=== PATIENT | female | born 1990 | race Caucasian/White ===

== ENCOUNTER 2019-05-14 18:06 | Emergency (ER) | payer OTHER ==
[~2019-05-14] VITALS: Ht 152.4 cm; Wt 58.1 kg
[2019-05-14] MEDS ORDERED: PREN1CHW4 PO (18:16)
[2019-05-14 19:20] LABS: BASO # 0.1 10^3/uL (0.0-0.2); BASO % 0.5 % (0.0-1.0); EOS # 0.2 10^3/uL (0.0-0.5); EOS % 1.7 % (0.0-3.0); HEMATOCRIT 42.6 % (36.0-47.0); HEMOGLOBIN 14.4 g/dl (12.0-15.5); LYMPH # 2.5 10^3/uL (1.5-5.0); LYMPH % 27.6 % (24.0-44.0); MEAN CORPUSCULAR HEMOGLOBIN 29.3 pg (27.0-33.0); MEAN CORPUSCULAR HGB CONC 33.8 g/dl (32.0-36.5); MEAN CORPUSCULAR VOLUME 86.6 fl (80.0-96.0); MONO # 0.7 10^3/uL (0.0-0.8); MONO % 7.2 % (0.0-5.0); NEUTROPHILS # 5.8 10^3/uL (1.5-8.5); NEUTROPHILS % 62.8 % (36.0-66.0); PLATELET COUNT, AUTOMATED 276 10^3/uL (150-450); RED BLOOD COUNT 4.92 10^6/uL (4.00-5.40); WHITE BLOOD COUNT 9.2 10^3/uL (4.0-10.0)
[2019-05-14 19:42] LABS: BLOOD UREA NITROGEN 13 MG/DL (7-18); CALCIUM LEVEL 8.6 MG/DL (8.5-10.1); CARBON DIOXIDE LEVEL 29 MEQ/L (21-32); CHLORIDE LEVEL 105 MEQ/L (98-107); CREATININE FOR GFR 0.71 MG/DL (0.55-1.30); GLOMERULAR FILTRATION RATE > 60.0 (>60); GLUCOSE, FASTING 78 MG/DL (70-100); POTASSIUM SERUM 4.3 MEQ/L (3.5-5.1); SODIUM LEVEL 141 MEQ/L (136-145)
[2019-05-14 22:21] LABS: HCG, SERUM QUANTITATIVE 2164 MIU/ML
--- NOTE | 2019-05-15 00:32 | REPVR ---
PROCEDURE INFORMATION: Exam: US First Trimester, Transabdominal Exam date and time: 05/14/2019 11:20 PM Clinical history: 28 years old, female; Lmp or gestational age (in weeks): 6w2d; Antepartum complications; Bleeding; ; Additional info: Vaginal bleeding TECHNIQUE: Imaging protocol: Real-time transabdominal obstetrical ultrasound of the maternal pelvis and a first trimester , less than 14 weeks 0 days, with image documentation. COMPARISON: No relevant prior studies available. FINDINGS: GESTATION: Gestation: Single live intrauterine . Gestational sac is measuring 1.0 cm corresponding to 5 weeks 1 day, small for size; one week behind.Gestational sac is seen moving with contraction as in the fundus of the uterus, impending cannot be completely excluded, followup is recommended. pole is identified. [place]-rump length measures 0.6 cm corresponding with 6 weeks 2 days with LASHAE of 01/05/20, concordant with LMP. Heart rate: heart rate is 104 beats per minute. Placenta: No subchorionic hemorrhage is seen. MATERNAL: Bilateral adnexa are unremarkable. No free fluid. IMPRESSION: Single live intrauterine . Gestational sac is measuring 1.0 cm corresponding to 5 weeks 1 day, small for size; one week behind.Gestational sac is seen moving with contraction as in the fundus of the uterus, impending cannot be completely excluded, followup is recommended. pole is identified. [place]-rump length measures 0.6 cm corresponding with 6 weeks 2 days with LASHAE of 01/05/20, concordant with LMP. Electronically signed by: Soheila Daily On 05/15/2019 00:31:42 AM
[2019-05-15 00:52] VITALS: BP 109/55
== END 2019-05-15 01:03 | disposition home or self-care (01) ==
LOC: M ED 18:06
DX: O20.0 Threatened abortion (principal); O26.891 Other specified pregnancy related conditions, first trimester; R10.2 Pelvic and perineal pain; Z87.42 Personal history of other diseases of the female genital tract; Z3A.01 Less than 8 weeks gestation of pregnancy

== ENCOUNTER 2019-05-16 10:57 | Emergency (ER) | payer OTHER ==
[~2019-05-16] VITALS: Ht 152.4 cm; Wt 57.8 kg
[2019-05-16 12:30] VITALS: BP 116/80
--- NOTE | 2019-05-16 12:33 | REP ---
FIRST TRIMESTER ULTRASOUND: Real-time sonographic evaluation of the gravid uterus performed utilizing transabdominal and endovaginal technique and compared to a prior study of 05/14/2019. The uterus measures 9.2 x 4.0 x 6.0 cm. 6 mm pole is seen. An irregular gestational sac, which appears to be collapsing in the lower uterine segment. No heart motion is detected. Estimated age based on crown-rump length of 6 mm is 6 weeks, 3 days. Right ovary measures 2.8 x 1.4 x 3.1 cm and appears unremarkable. Left ovary is not visualized. IMPRESSION: There are findings compatible with intrauterine demise and impending . A 6 mm pole is seen within a collapsed gestational sac in the lower uterine segment. No heart motion is detected. heart motion was detected on the prior study of 05/14/2019. Estimated gestational age based on crown-rump length of 6 mm is 6 weeks 3 days. Electronically Signed by William Connell MD 05/16/2019 03:20 P
== END 2019-05-16 13:05 | disposition home or self-care (01) ==
LOC: M ED 10:57
DX: O03.9 Complete or unspecified spontaneous abortion without complication (principal); Z79.899 Other long term (current) drug therapy

== ENCOUNTER → 2019-05-16 | Outpatient (CLI) | payer OTHER ==
[~2019-05-16] MED LIST: PREN1CHW4 PO
== END ==
LOC: M LAB 10:40
PROVIDERS: ATTEND Physician Assistant
DX: O20.0 Threatened abortion (principal); Z3A.00 Weeks of gestation of pregnancy not specified

== ENCOUNTER → 2019-05-18 | Outpatient (CLI) | payer OTHER | LOC: M LAB 12:18 | PROVIDERS: ATTEND Emergency Medicine | DX: O03.9 Complete or unspecified spontaneous abortion without complication (principal) ==

== ENCOUNTER → 2019-08-12 | Outpatient (CLI) | payer OTHER ==
--- NOTE | 2019-08-12 14:31 | REP ---
REASON: Pain after trauma. PRIORS: None. FINDINGS: The joint spaces are symmetric and relatively well maintained. There is no evidence of acute fracture or destructive osseous lesion. IMPRESSION: Negative hand. Electronically Signed by Jarrett Sarah DO 08/12/2019 03:25 P
== END ==
LOC: M WUC 13:26
PROVIDERS: ATTEND Physician Assistant
DX: M79.641 Pain in right hand (principal)

== ENCOUNTER 2020-04-26 22:17 | Inpatient (IN) | payer OTHER ==
[~2020-04-26] VITALS: Ht 152.4 cm; Wt 66.4 kg
[2020-04-26 22:39] VITALS: BP 109/71
[2020-04-26] MEDS: LR 1,000 ML IV SCH (23:40)
[2020-04-27 00:12] LABS: HEMATOCRIT 30.8 % (36.0-47.0); HEMOGLOBIN 10.1 g/dl (12.0-15.5); MEAN CORPUSCULAR HEMOGLOBIN 25.5 pg (27.0-33.0); MEAN CORPUSCULAR HGB CONC 32.8 g/dl (32.0-36.5); MEAN CORPUSCULAR VOLUME 77.8 fl (80.0-96.0); PLATELET COUNT, AUTOMATED 216 10^3/uL (150-450); RED BLOOD COUNT 3.96 10^6/uL (4.00-5.40); WHITE BLOOD COUNT 8.7 10^3/uL (4.0-10.0)
--- NOTE | 2020-04-27 01:30 | HPEPDOC ---
Obstetrical History & Physical General Date of Admission Apr 26, 2020 at 23:18 History of Present Illness 29yo daphne [id number] @38+5, presenting with c/o cramping and bleeding. States reassuring movement, denies LOF Chief Complaint: Contractions, term, Vaginal Bleeding Information Provided By: Patient Age: 29 : 4 Term: 1 Pre-term: 0 Abortions: 2 Livin Care Care: Good Care Dating Final EDC: May 05, 2020 Final EDC for Daily Update: May 05, 2020 Final EDC by: LMP LMP: Jul 30, 2019 Estimated Date of Confinement: May 05, 2020 EGA at Admission: 38 (+5) Antepartum Course Diagnos(e)s low lying placenta-resolved; choroid plexus cyst-resolved Height (inches): 60 Pre- weight (lbs.): 130 Admission Weight (lbs.): 145 Change in Weight (lbs.): 15 Past Medical History Past Obstetrical History : Past Obstetrical History: Multigravida Type of Delivery: Spontaneous Vaginal Del. Sex of Infant: Female Complications: No ROD FILLER History: Spontaneous Past Medical History Medical History denies Surgical History: Denies/None Family History Significant Family History: Asthma, Hypertension Social History Marital Status: Family situation: Spouse/partner home Psychosocial History: No pertinent psych hx * Smoker: non-smoker Alcohol: occationally Drugs: denies Abuse Violence Screening Have you been hit/kicked/slapp: No Have you been sexually assault: No Imunizations Tdap status: current Influenza Status: current Allergies Coded Allergies: No Known Allergies (Unverified , 05/14/19) Medications Miscellaneous Medications Pnv No.103/Folic/Om3s/Fish Oil ( Gummies) 1 Each Tab.chew, 1 CHW PO Physical Examination Physical Examination GENERAL: Alert and oriented times three. BREAST: . ABDOMEN: Gravid and non-tender to touch. FETUS: Is vertex (VTX) by sterile vaginal examination (SVE), fetus is vertex (VTX) by Jamil. HEART RATE: Regular rate and rhythm. LUNGS: Clear to auscultation (CTA). EXTREMITIES: No edema. No clonus. Deep tendon reflexes (DTRs) + . Vital Signs/I&O Vital Signs Date Time Temp Pulse Resp B/P (MAP) Pulse Ox O2 Delivery O2 Flow Rate FiO2 04/26/20 22:39 98.2 93 18 109/71 (84) Laboratory Data 24H LABS Laboratory Tests 2 04/26/20 23:25: Nucleated Red Blood Cells % (auto) 0.0 04/26/20 23:41: Serology Scanned Report Hepatitis B Testing CBC/BMP Laboratory Tests 04/26/20 23:25 Assessment/Plan Assessment is a -year-old (G) para (P)--- at + weeks by -week ultrasound. Presents to Labor and Delivery (L&D) . Plan Admit and orient. Starch Dumper and consent. Diet: . Group B Streptococcus (GBS) [negative]. Labs and intravenous (IV) per unit protocol. Counseled on Pitocin and induction of labor (IOL). Lactated Ringers (LR): Bolus mL, then at mL/hr. Anticipate [normal spontaneous delivery ()]. C-S as appropriate. LENY WEST CNM Apr 27, 2020 01:30
--- NOTE | 2020-04-27 01:39 | IPNPDOC ---
Obstetrical Progress Note Date of Service Apr 27, 2020 Objective Vital Signs Date Time Temp Pulse Resp B/P (MAP) Pulse Ox O2 Delivery O2 Flow Rate FiO2 04/26/20 22:39 98.2 93 18 109/71 (84) Assessment Heart Rate (FHR): 120 Variability: Moderate Accelerations: Positive Decelerations: None Heart Rate Tracing: Category I Tocometer Contractions: Yes (every 3-5 min) Strength: palpated as moderate Sterile Vaginal Examination Dilation: 5 cm Effacement (%): 80% Station: -2 Cervical Consistency: Soft Cervical Position: Middle Postion/Presentation: Cephalic presentation Assessment and Plan Age: 29 : 4 Term: 1 Pre-term: 0 Abortions: 2 Livin EGA at Admission: 38 (+6) Status: Reassuring Group B Streptococcus: Negative Anticipate: Vaginal Delivery Additional Comments Speculum exam with thick blood clots noted at the cervical os. No active bleeding or pooling visualized. LENY WEST CNM Apr 27, 2020 01:39
[2020-04-27 01:56] VITALS: BP 104/59
[2020-04-27 05:17] VITALS: BP 114/56
--- NOTE | 2020-04-27 05:41 | IPNPDOC ---
Obstetrical Progress Note Date of Service Apr 27, 2020 Subjective Pt states feeling less frequent contractions Objective Vital Signs Date Time Temp Pulse Resp B/P (MAP) Pulse Ox O2 Delivery O2 Flow Rate FiO2 04/26/20 22:39 98.2 93 18 109/71 (84) Assessment Heart Rate (FHR): 125 Variability: Moderate Accelerations: Positive Decelerations: None Heart Rate Tracing: Category I Tocometer Contractions: Yes Frequency: irregular Strength: palpated as moderate Sterile Vaginal Examination Dilation: 6 cm Effacement (%): 90% Station: -2 Cervical Consistency: Soft Cervical Position: Posterior Postion/Presentation: Cephalic presentation Assessment and Plan Age: 29 : 4 Term: 1 Pre-term: 0 Abortions: 2 Livin Weeks & Days 38+6 Status: Reassuring Group B Streptococcus: Negative Anticipate: Vaginal Delivery Additional Comments Membranes swept with exam. Posterior cervix with BBOW, presentation palpates OP. Pt assisted to rotate to an exaggerated right lateral Belle and frequent position changes encouraged. LR@125mL/hr, continuous efmx2, monitor for change in or maternal status, consider AROM with next exam, evaluate for change as indicated, anticipate vaginal delivery. LENY WEST CNM Apr 27, 2020 05:41
[2020-04-27] MEDS ORDERED: OXYTOCIN 30 UNITS IN 0.9% NaCl 500ML IV BAG (J2590) As Ordered ONE (06:08)
[2020-04-27] MEDS: LR 1,000 ML IV SCH (07:08)
[2020-04-27] MEDS ORDERED: FENTANYL 2MCG/ML ROPIVACAINE 0.2% IN 0.9% NACL 100ML IVBAG As Ordered ONE (07:42)
[2020-04-27] MEDS ORDERED: EPIDURAL/PCA KEYS XX PRN (08:45)
[2020-04-27] MEDS ORDERED: NALOXONE INJ 0.4MG/1ML VIAL (J2310 PER 1MG) IV PRN (08:45)
[2020-04-27] MEDS ORDERED: ePHEDrine SULFATE 25 MG/5 ML(5MG/ML) SYRINGE IV PRN (08:45)
[2020-04-27] MEDS ORDERED: LACTATED RINGER'S 1000 ML IV PRN (08:45)
[2020-04-27] MEDS ORDERED: ONDANSETRON 4MG/2ML VIAL IV PRN (08:45)
[2020-04-27] MEDS ORDERED: FENTANYL/ROPIVACAINE/NACL BAG 100 ML EPIDURAL SCH (08:45)
[2020-04-27] MEDS ORDERED: EPIDURAL COMMENT XX SCH (08:45)
[2020-04-27] MEDS ORDERED: REFRIGERATOR IV KEYS XX PRN (08:45)
[2020-04-27] MEDS ORDERED: diphenhydrAMINE 50MG/ML VIAL (J1200) IV PRN (08:45)
--- NOTE | 2020-04-27 09:57 | IPNPDOC ---
Obstetrical Progress Note Date of Service Apr 27, 2020 Subjective Patient resting comfortably with epidural in place. Denies any complaints. Objective Vital Signs Date Time Temp Pulse Resp B/P (MAP) Pulse Ox O2 Delivery O2 Flow Rate FiO2 04/27/20 05:17 98.5 93 18 114/56 (75) 04/27/20 01:56 Room Air Assessment Heart Rate (FHR): 130 Variability: Moderate Accelerations: Positive Decelerations: None Heart Rate Tracing: Category I Tocometer Contractions: Yes Frequency: regular, every 1-3 min. Sterile Vaginal Examination Dilation: 8 cm Effacement (%): 100% Station: 0 Cervical Consistency: Soft Cervical Position: Anterior Postion/Presentation: Cephalic presentation Assessment and Plan Status: Reassuring Group B Streptococcus: Negative Anticipate: Vaginal Delivery Additional Comments 29yo now at 38+6wks admitted for labor. Patient has progressed to 8/c/0. AROM performed notable for clear fluid after informed patient consent obtained. FHRT cat I. Will plan for expectant . All questions answered. KEN EVANGELISTA DO Apr 27, 2020 09:57
--- NOTE | 2020-04-27 12:14 | DNPDOC ---
[facility] Delivery Note Delivery Note DATE OF DELIVERY: [id number] PREDELIVERY DIAGNOSIS: 38+6/7 weeks' gestation and labor. POST DELIVERY DIAGNOSIS: Delivered. PROCEDURE: Spontaneous vaginal delivery. PARKING METER INSTALLER: Dr. Ken Evangelista ANESTHESIA: Epidural ESTIMATED BLOOD LOSS: 150 mL. FINDINGS: 7 pound 4 ounce, 3300g, male , Score 8/9. No nuchal cord. Terminal meconium appreciated. DELIVERY SUMMARY: Patient is a 29-year-old 4 now para 2021 who was admit devaughn to labor and delivery for active labor. Patient progressed on maternal effort alone after AROM to c/c/+3. With excellent maternal effort, spontaneous vaginal delivery of a viable term male . Presentation was MARLENE with restitution to LOT with right shoulder anterior position. Anterior shoulder and body delivered without difficulty. No nuchal cord appreciated. Terminal meconium noted on delivery field. Infant with spontaneous cry therefore placed on maternal abdomen with care transferred to awaiting [place] Team. Pitocin IV bolus initiated. After 7 minutes of delayed cord clamping per patient request, three vessel cord clamped x2 and cut by FOB. Cord blood sample obtained. Third stage spontaneous with intact placenta. Inspection revealed no lacerations. EBL 150ml. Mother and stable and bonding upon my leaving the room. KEN EVANGELISTA DO Apr 27, 2020 12:13
[2020-04-27] MEDS ORDERED: IBUPROFEN 600MG TAB PO PRN (12:30)
[2020-04-27] MEDS ORDERED: OXYTOCIN DRIP 30 UNITS in IV 1 EA IV SCH (12:30)
[2020-04-27] MEDS ORDERED: DOCUSATE SODIUM 100 MG CAP PO PRN (12:30)
[2020-04-27] MEDS ORDERED: DIBUCAINE 1% OINTMENT 30GM TOP PRN (12:30)
[2020-04-27] MEDS ORDERED: ACETAMINOPHEN TAB 650MG DOSE (2X325MG) PO PRN (12:30)
[2020-04-27] MEDS ORDERED: IBUPROFEN 800 MG TAB PO PRN (12:30)
[2020-04-27 14:05] VITALS: BP 109/55
[2020-04-27 17:43] VITALS: BP 113/72
[2020-04-27] MEDS: SLF 3 ML SYR IV SCH (22:00)
[2020-04-27] MEDS: ACETAMINOPHEN 500 MG TAB PO PRN (22:06)
[2020-04-28] MEDS: ACETAMINOPHEN 500 MG TAB PO PRN (05:39)
[2020-04-28] MEDS: SLF 3 ML SYR IV SCH ×2 (05:39→14:00)
[2020-04-28 06:00] VITALS: BP 109/72
[2020-04-28 07:10] VITALS: BP 109/72
--- NOTE | 2020-04-28 08:14 | IPNPDOC ---
Progress Note Date of Service: Apr 28, 2020 Day#: 1 Progress Note SUBJECT: 29yo PPD#1 status post uncomplicated spontaneous vaginal delivery over intact perineum. She has been ambulating, voiding spontaneously without issue and tolerating regular diet. Breast feeding without issue. Reports lochia is decreasing. Patient is ambulating well. Reports pelvic/vulvar pain t hat is controlled with pain medications. OBJECTIVE: VITAL SIGNS: Within normal limits, afebrile. Alert and oriented times three. BREAST: nipples intact, supple RESP: no exaggerated respiratory effort appreciated CARDS: well-perfused Abdomen: Fundus firm at U-2. Soft, NTTP. : Scant lochia, minimal edema Ext: no edema, no calf tenderness ASSESSMENT: 29yo status PPD#1 s/p over intact perineum. Vitals within normal limits, afebrile, hemodynamically stable with no evidence of infection. PLAN: 1. Discharge to home today or tomorrow with infant pending peds evaluation 2. Continue current pain mgmt. 3. Encourage breast feeding and ambulation. 4. Encourage regular diet as tolerated 5. Routine PP visit in 6 weeks in clinic. 6. Discussed return precautions at length VS, I&O, 24H, Fishbone Vital Signs/I&O Vital Signs Date Time Temp Pulse Resp B/P (MAP) Pulse Ox O2 Delivery O2 Flow Rate FiO2 04/28/20 07:10 98.0 78 18 109/72 98 Room Air I&O- Last 24 Hours up to 6 AM 04/28/20 06:00 Intake Total 3000 ml Output Total 1250 ml Balance 1750 ml KEN EVANGELISTA DO Apr 28, 2020 08:14
[2020-04-28] MEDS ORDERED: INFLUENZA QUADRIVALENT PF VACCINE 0.5ML SYRINGE IM ONE (09:00)
[2020-04-28] MEDS: PRENATAL VITAMINS CHEWABLE TABLET PO SCH (09:55)
[2020-04-28 18:00] VITALS: BP 102/66
[2020-04-29] MEDS: PRENATAL VITAMINS CHEWABLE TABLET PO SCH (07:14)
--- NOTE | 2020-05-05 18:05 | IPN ---
DATE: 04/28/2020 HISTORY: This patient requested a circumcision of her male . PLAN: After discussing risks and benefits of the circumcision, the medical and non-medical indications, the penile block and after care expressed understanding of penile block and after care and bleeding, signed the Consent Form, all questions were answered, 20 minute discussion, we await the clearance by the primary clinician. [place]
== END 2020-04-29 09:45 | disposition home or self-care (01) | DRG 807 ==
LOC: M LDO 22:17 → M LDI 23:18 → M OBS 04-27 14:38
PROVIDERS: ADMIT Registered Nurse; ATTEND Registered Nurse
PROC: 10E0XZZ Delivery of Products of Conception, External Approach (ICD-10-PCS; principal; 2020-04-27)
DX: O77.0 Labor and delivery complicated by meconium in amniotic fluid (principal); Z37.0 Single live birth; Z3A.38 38 weeks gestation of pregnancy

== ENCOUNTER 2020-09-22 19:26 | Emergency (ER) | payer OTHER ==
[~2020-09-22] VITALS: Ht 152.4 cm; Wt 58.7 kg
--- OUTSIDE RECORDS SUMMARY | 2020-09-22 19:35 | CCD ---
Author Author [facility] Organization [facility] Address Unknown Phone Unavailable Care Team Providers Care Astronomy Instructor Name Role Phone Sims, Dalila Corral PA Unavailable Unavailable Sims, Dalila Shayna PA Unavailable Unavailable Sims, Dalila Shayna PA Unavailable Unavailable Sims, Dalila Shayna PA Unavailable Unavailable Sims, Dalila Shayna PA Unavailable Unavailable Sims, Dalila Shayna PA Unavailable Unavailable Sims, Dalila Shayna PA Unavailable Unavailable Sims, Dalila Shayna PA Unavailable Unavailable Sims, Dalila Shayna PA Unavailable Unavailable Sims, Dalila Shayna PA Unavailable Unavailable Re-disclosure Warning The records that you are about to access may contain information from federally-assisted alcohol or drug abuse programs. If such information is present, then the following federally mandated warning applies: This information has been disclosed to you from records protected by federal confidentiality rules (42 CFR part 2). The federal rules prohibit you from making any further disclosure of this information unless further disclosure is expressly permitted by the written consent of the person to whom it pertains or as otherwise permitted by 42 CFR part 2. A general authorization for the release of medical or other information is NOT sufficient for this purpose. The Federal rules restrict any use of the information to criminally investigate or prosecute any alcohol or drug abuse patient.The records that you are about to access may contain highly sensitive health information, the redisclosure of which is protected by Article 27-F of the [facility] Public Health law. If you continue you may have access to information: Regarding HIV / AIDS; Provided by facilities licensed or operated by the [facility] Office of Mental Health; or Provided by the [facility] Office for People With Developmental Disabilities. If such information is present, then the following [facility] mandated warning applies: This information has been disclosed to you from confidential records which are protected by state law. State law prohibits you from making any further disclosure of this information without the specific written consent of the person to whom it pertains, or as otherwise permitted by law. Any unauthorized further disclosure in violation of state law may result in a fine or mcc sentence or both. A general authorization for the release of medical or other information is NOT sufficient authorization for further disc losure. Encounters Encounter Providers Location Date Indications Data Source(s ) Outpatient 08/30/2019 02:58:00 PM EST [facility] Outpatient Attender: Shayna monteiro 08/12/2019 11:20:00 AM EST [facility] ([facility], [facility]) Insurance Providers Payer name Policy type / Coverage type Policy ID Covered constitution party ID Covered constitution party's relationship to agustin Policy Agustin Plan Information [facility] [id number] HU [id number] HUMAN [facility] O [id number] S [id number] [facility] [id number] HU2 [id number] Surgeries/Procedures Procedure Description Date Indications Data Source(s) APPLICATION SHORT ARM SPLINT FOREARM-HAND STATIC 08/12 12:00:00 AM EST [facility] ([facility], [facility]) Vital Signs ID Date Data Source UNK Name Value Range Interpretation Code Description Data Source(s) Body mass index (BMI) [Ratio] 25.4 kg/m2 25.4 k g/m2 [facility] ([facility], [facility]) Body height 60 [in_i] 60 [in_i] [facility] ([facility], [facility]) 5'0" Body weight 130.00 [lb_av] 130.00 [lb_av] [facility] T ([facility], [facility]) Body temperature 98.8 [degF] 98.8 [degF] [facility] ([facility], [facility]) Oxygen saturation in Arterial blood by Pulse oximetry 98 % 98 % [facility] ([facility], [facility]) Respiratory rate 12 /min 12 /min [facility] ( [facility], [facility]) Heart rate 84 /min 84 /min [facility] ([facility], [facility]) Diastolic blood pressure 70 mm[Hg] 70 mm[Hg] [facility] ([facility], [facility]) Systolic blood pressure 106 mm[Hg] 106 mm[Hg] [facility] ([facility], [facility])
[2020-09-22] MEDS ORDERED: APRITAB PO (19:36)
--- OUTSIDE RECORDS SUMMARY | 2020-09-22 20:29 | CCD ---
Author Author [facility] Organization [facility] Address Unknown Phone Unavailable Care Team Providers Care Rules Examiner Name Role Phone Sims, Dalila Corral PA [...] is protected by Article 27-F of the [facility] Public Health law. If you continue you may have access to information: Regarding HIV / AIDS; Provided by facilities licensed or operated by the [facility] Office of Mental Health; or Provided by the [facility] Office for People With Developmental Disabilities. If such information is present, then the following [facility] mandated warning applies: This information has been [...] law may result in a fine or longterm sentence or both. A general authorization for the release of medical or other information is NOT sufficient authorization for further disc losure. Encounters Encounter Providers Location Date Indications Data Source(s ) Outpatient 08/30/2019 02:58:00 PM EST [facility] Attender: Shayna monteiro 08/12/2019 11:20:00 AM EST [facility] ([facility], [facility]) Insurance Providers Payer name Policy type / Coverage type Policy ID Covered democrat ID Covered democrat's relationship to agustin Policy Agustin [facility] [id number] HU [id number] H[facility] REG O [id number] S [id number] [facility] [id number] HU2 [id number] Surgeries/Procedures Procedure Description Date Indications Data Source(s) APPLICATION SHORT ARM SPLINT FOREARM-HAND STATIC 08/12 12:00:00 AM EST [facility] ([facility], [facility]) Vital Signs ID Date Data Source UNK Name Value Range Interpretation Code Description Data Source(s) Body mass index (BMI) [Ratio] 25.4 kg/m2 25.4 k g/m2 [facility] ([facility], [facility]) Body height 60 [in_i] 60 [in_i] [facility] ([facility], [facility]) 5'0" Body weight 130.00 [lb_av] 130.00 [lb_av] [facility] T ([facility], [facility]) Body temperature 98.8 [degF] 98.8 [degF] [facility] ([facility], [facility]) Oxygen saturation in Arterial blood by Pulse oximetry 98 % 98 % [facility] ([facility], [facility]) Respiratory rate 12 /min 12 /min [facility] ( [facility], [facility]) Heart rate 84 /min 84 /min [facility], [facility]) Diastolic blood pressure 70 mm[Hg] 70 mm[Hg] [facility] ([facility], [facility]) Systolic blood pressure 106 mm[Hg] 106 mm[Hg] [facility] ([facility], [facility])
[2020-09-22 21:13] LABS: BASO % 0.3 % (0.0-1.0); EOS # 0.1 10^3/uL (0.0-0.5); EOS % 0.6 % (0.0-3.0); HEMATOCRIT 41.4 % (36.0-47.0); HEMOGLOBIN 13.1 g/dl (12.0-15.5); LYMPH # 1.9 10^3/uL (1.5-5.0); LYMPH % 21.6 % (24.0-44.0); MEAN CORPUSCULAR HEMOGLOBIN 26.1 pg (27.0-33.0); MEAN CORPUSCULAR HGB CONC 31.6 g/dl (32.0-36.5); MEAN CORPUSCULAR VOLUME 82.5 fl (80.0-96.0); MONO # 0.5 10^3/uL (0.0-0.8); MONO % 5.1 % (0.0-5.0); NEUTROPHILS # 6.4 10^3/uL (1.5-8.5); NEUTROPHILS % 72.1 % (36.0-66.0); PLATELET COUNT, AUTOMATED 313 10^3/uL (150-450); RED BLOOD COUNT 5.02 10^6/uL (4.00-5.40); WHITE BLOOD COUNT 8.9 10^3/uL (4.0-10.0)
[2020-09-22] MEDS ORDERED: NS 1,000 ML IV ONE (21:15)
[2020-09-22] MEDS ORDERED: ONDANSETRON 4MG/2ML VIAL IV ONE (21:15)
[2020-09-22] MEDS ORDERED: KETOROLAC 30 MG/ML 1ML VIAL IV ONE (21:15)
[2020-09-22 21:27] LABS: ALBUMIN 3.7 GM/DL (3.2-5.2); ALT/SGPT 18 U/L (12-78); BILIRUBIN,DIRECT 0.1 MG/DL (0.0-0.2); BILIRUBIN,TOTAL 0.7 MG/DL (0.2-1.0); BLOOD UREA NITROGEN 11 MG/DL (7-18); CALCIUM LEVEL 9.2 MG/DL (8.5-10.1); CARBON DIOXIDE LEVEL 27 MEQ/L (21-32); CHLORIDE LEVEL 109 MEQ/L (98-107); GLOMERULAR FILTRATION RATE > 60.0 (>60); GLUCOSE, FASTING 85 MG/DL (70-100); HCG, SERUM QUANTITATIVE 6 MIU/ML; LIPASE 142 U/L (73-393); POTASSIUM SERUM 3.7 MEQ/L (3.5-5.1); SODIUM LEVEL 142 MEQ/L (136-145); TOTAL PROTEIN 7.2 GM/DL (6.4-8.2)
[2020-09-22] MEDS ORDERED: diazePAM 10MG/2ML SYRINGE (J3360 PER 5MG) IV ONE (22:45)
[2020-09-22] MEDS ORDERED: CIPROFLOXACIN 500MG TABLET PO ONE (23:15)
[2020-09-22] MEDS ORDERED: ROBA750T4 PO (23:17)
[2020-09-22] MEDS ORDERED: NAPR-837 PO (23:17)
[2020-09-22] MEDS ORDERED: CIPR-249 PO (23:17)
[2020-09-22 23:43] VITALS: BP 146/91
[2020-09-23 00:25] LABS: CHLAMYDIA DNA AMPLIFICATION NEGATIVE (NEGATIVE); GC DNA AMPLIFICATION NEGATIVE (NEGATIVE)
== END 2020-09-22 23:45 | disposition home or self-care (01) ==
LOC: M ED 19:26
DX: N39.0 Urinary tract infection, site not specified (principal); M54.5 Low back pain; Z79.3 Long term (current) use of hormonal contraceptives
CPT/HCPCS: 80048; 80076; 81001; 83690; 84702; 85025; 86850; 86900; 86901; 87086; 87210; 87661; 96361; 96374; 96375; 99284; J1885; J2405; J3360

== ENCOUNTER → 2020-10-07 | Outpatient (REF) | payer OTHER ==
[~2020-10-07] MED LIST changes: +APRITAB PO; +CIPR-249 PO; +NAPR-837 PO; +ROBA750T4 PO
[2020-10-07 21:55] LABS: APPEARANCE, URINE HAZY (CLEAR); BACTERIA, URINE AUTO NEGATIVE (NEGATIVE); BILIRUBIN, URINE AUTO NEGATIVE (NEGATIVE); BLOOD, URINE BLOOD NEGATIVE (NEGATIVE); COLOR, URINE YELLOW (YELLOW); GLUCOSE, URINE (UA) AUTO NEGATIVE (NEGATIVE); KETONE, URINE AUTO NEGATIVE (NEGATIVE); LEUKOCYTE ESTERASE, URINE AUTO 1+ (NEGATIVE); MUCUS, URINE SMALL (NEGATIVE); NITRITE, URINE AUTO NEGATIVE (NEGATIVE); PROTEIN, URINE AUTO 2+ mg/dL (NEGATIVE); RBC, URINE AUTO 2 /HPF (0-3); SPECIFIC GRAVITY URINE AUTO 1.026 (1.002-1.035); SQUAMOUS EPITHELIAL CELL UR AU 4 /HPF (0-6); WBC, URINE AUTO 14 /HPF (0-3)
== END ==
LOC: M LAB REF 21:39
PROVIDERS: ATTEND Physician Assistant Medical
DX: R30.0 Dysuria (principal)

== ENCOUNTER → 2020-11-18 | Outpatient (REF) | payer OTHER | LOC: M LAB REF 21:02 | PROVIDERS: ATTEND Physician Assistant | DX: J02.9 Acute pharyngitis, unspecified (principal) ==

== ENCOUNTER 2021-07-26 13:25 | Emergency (ER) | payer OTHER ==
[~2021-07-26] VITALS: Ht 152.4 cm; Wt 53.2 kg
--- OUTSIDE RECORDS SUMMARY | 2021-07-26 13:30 | CCD ---
Author Author [facility] Address Unknown Phone Unavailable Support Name Relationship Address Phone UE Next Of Kin Unknown Unavailable RYLIE CALZADA Next Of Kin [id number] [place], [place] [id number] Re-disclosure Warning The records that you are [...] is protected by Article 27-F of the [facility] Public Health law. If you continue you may have access to information: Regarding HIV / AIDS; Provided by facilities licensed or operated by the [facility] Office of Mental Health; or Provided by the [facility] Office for People With Developmental Disabilities. If such information is present, then the following [facility] mandated warning applies: This information has been [...] NOT sufficient authorization for further disc losure. Immunizations Vaccine Date Status Description Data Source(s) COVID-19 VACCINE Pfizer 01/07/2021 12:00:00 AM EDT completed [facility] Vaccine Series Complete: NOThis Data was Submitted to [facility] Via [employer]. Medications No Information Insurance Providers Payer name Policy type / Coverage type Policy ID Covered constitution party ID Covered constitution party's relationship to agustin Policy Agustin Plan Information [facility] [id number] [facility] [id number] [facility] O [id number] S [id number] [facility] [id number] [facility] [id number] Problems, Conditions, and Diagnoses No Information Surgeries/Procedures No Information Results ID Date Data Source [id number] 11/18/2020 12:00:00 AM EDT [facility] Name Value Range Interpretation Code Description Data Adriana rce(s) Supporting Document(s) SARS-CoV2 Rapid Antigen Negative [facility] and reported by [facility]. Procedure Social History No Information
[2021-07-26] MEDS ORDERED: DICL25TA PO (13:36)
--- OUTSIDE RECORDS SUMMARY | 2021-07-26 14:48 | CCD ---
Author Author [facility] Address Unknown Phone Unavailable Support Name Relationship Address Phone UE Next Of Kin Unknown Unavailable RYLIE CALZADA Next Of Kin [id number] [place], [place] [id number] Re-disclosure Warning The records that you are [...] is protected by Article 27-F of the [facility] Public Health law. If you continue you may have access to information: Regarding HIV / AIDS; Provided by facilities licensed or operated by the [facility] Office of Mental Health; or Provided by the [facility] Office for People With Developmental Disabilities. If such information is present, then the following [facility] mandated warning applies: This information has been [...] law may result in a fine or residential sentence or both. A general authorization for the release of medical or other information is NOT sufficient authorization for further disc losure. Immunizations Vaccine Date Status Description Data Source(s) COVID-19 VACCINE Pfizer 01/07/2021 12:00:00 AM EDT completed [facility] Vaccine Series Complete: NOThis Data was Submitted to [facility] Via [employer]. Medications No Information Insurance Providers Payer name Policy type / Coverage type Policy ID Covered libertarian ID Covered libertarian's relationship to agustin Policy Agustin Plan Information [facility] [id number] [facility] [id number] [facility] O [id number] S [id number] [facility] [id number] [facility] [id number] Problems, Conditions, and Diagnoses No Information Surgeries/Procedures No Information Results ID Date Data Source [id number] 11/18/2020 12:00:00 AM EDT [facility] Name Value Range Interpretation Code Description Data Adriana rce(s) Supporting Document(s) SARS-CoV2 Rapid Antigen Negative [facility] This lab [facility] by [facility] and reported by [facility]. Procedure Social History No Information
[2021-07-26] MEDS ORDERED: METOCLOPRAMIDE INJ 10MG/2ML VIAL (J2765 PER 1) IV ONE (15:05)
[2021-07-26] MEDS ORDERED: diphenhydrAMINE 50MG/ML VIAL (J1200) IV ONE (15:05)
[2021-07-26] MEDS ORDERED: NS 1,000 ML IV ONE (15:05)
[2021-07-26] MEDS ORDERED: ACETAMINOPHEN 500 MG TAB PO ONE (15:05)
[2021-07-26 15:30] LABS: BASO % 0.4 % (0.0-1.0); EOS # 0.1 10^3/uL (0.0-0.5); EOS % 0.5 % (0.0-3.0); HEMATOCRIT 48.4 % (36.0-47.0); HEMOGLOBIN 15.9 g/dl (12.0-15.5); LYMPH # 2.1 10^3/uL (1.5-5.0); LYMPH % 19.5 % (24.0-44.0); MEAN CORPUSCULAR HEMOGLOBIN 27.9 pg (27.0-33.0); MEAN CORPUSCULAR HGB CONC 32.9 g/dl (32.0-36.5); MEAN CORPUSCULAR VOLUME 85.1 fl (80.0-96.0); MONO # 0.4 10^3/uL (0.0-0.8); MONO % 3.7 % (2.0-8.0); NEUTROPHILS # 8.3 10^3/uL (1.5-8.5); NEUTROPHILS % 75.6 % (36.0-66.0); PLATELET COUNT, AUTOMATED 290 10^3/uL (150-450); RED BLOOD COUNT 5.69 10^6/uL (4.00-5.40)
[2021-07-26 15:51] LABS: BLOOD UREA NITROGEN 9 MG/DL (7-18); CALCIUM LEVEL 8.7 MG/DL (8.5-10.1); CARBON DIOXIDE LEVEL 27 MEQ/L (21-32); CHLORIDE LEVEL 107 MEQ/L (98-107); CREATININE FOR GFR 0.82 MG/DL (0.55-1.30); GLOMERULAR FILTRATION RATE > 60.0 (>60); GLUCOSE, FASTING 90 MG/DL (70-100); POTASSIUM SERUM 3.9 MEQ/L (3.5-5.1); SODIUM LEVEL 141 MEQ/L (136-145)
--- NOTE | 2021-07-26 16:19 | REP ---
INDICATION: intermittent frontal headache 14 days, dizzy, nausea. COMPARISON: None. TECHNIQUE: Contiguous 5 mm thick axial projection images were obtained through the head. 2D coronal reconstructions were performed. FINDINGS: There is no evidence of acute intracranial hemorrhage or infarction. There are no abnormal intracranial masses or mass effects. The skull base and calvarium are normal. The visualized mastoid air cells and paranasal sinuses are clear. The intraorbital contents and visualized extracranial soft tissues are unremarkable. IMPRESSION: No evidence of intracranial pathology. <Electronically signed by Malvin Bales > 07/26/21 [id number]
[2021-07-26 16:43] VITALS: BP 111/62
== END 2021-07-26 17:27 | disposition home or self-care (01) ==
LOC: M ED 13:25
DX: R51.9 Headache, unspecified (principal)
CPT/HCPCS: 70450; 80048; 84702; 85025; 96361; 96374; 96375; 99284; J1200; J2765